=== PATIENT | female | born 1930 | race Caucasian/White ===

== ENCOUNTER → 2016-03-20 | Outpatient (CLI) | payer MEDICARE, OTHER ==
--- NOTE | 2016-03-20 08:55 | RAD ---
EXAM DESCRIPTION: XR SHOULDER 2 OR MORE VIEWS CLINICAL HISTORY: PAIN IN LEFT SHOULDER COMPARISON: None Available. TECHNIQUE: Two views. FINDINGS: Degenerative changes are observed in the acromioclavicular joint. The glenohumeral joint is unremarkable. No fracture dislocation is seen. IMPRESSION: Degenerative changes are observed in the acromioclavicular joint.The left shoulder is otherwise unremarkable. Electronically signed by: Celestine Zamora MD 03/20/2016 08:54
== END ==
LOC: RAD 07:40
PROVIDERS: ATTEND Orthopaedic Surgery
DX: M25.512 Pain in left shoulder (principal); M12.812 Other specific arthropathies, not elsewhere classified, left shoulder

== ENCOUNTER → 2016-05-14 | Outpatient (CLI) | payer MEDICARE, OTHER | END | disposition home or self-care (01) | LOC: RESP 09:20 | PROVIDERS: ATTEND Orthopaedic Surgery | DX: Z01.818 Encounter for other preprocedural examination (principal) ==

== ENCOUNTER → 2016-07-13 | Outpatient (CLI) | payer MEDICARE, OTHER ==
--- NOTE | 2016-07-13 16:38 | RAD ---
EXAM DESCRIPTION: Knee,Left Complete CLINICAL HISTORY: 85 years Female, KNEE PAIN IMPRESSION: 4 views of the left knee reveal severe degenerative change of the medial compartment with joint space loss and osteophyte formation. Severe degenerative changes also noted at the patellofemoral joint with joint space loss and osteophyte formation. Fairly preserved joint space of lateral compartment. No fracture. Small joint effusion is noted. Electronically signed by: Charly Jimenez MD 07/13/2016 4:37 PM CDT
--- NOTE | 2016-07-13 16:39 | RAD ---
EXAM DESCRIPTION: Knee,Right Complete CLINICAL HISTORY: 85 years Female, KNEE PAIN IMPRESSION: 4 views of right knee reveals tricompartment advanced joint space loss with osteophyte formation. Small joint effusion noted. No evidence of fracture or osseous lesion. Electronically signed by: Charly Jimenez MD 07/13/2016 4:38 PM CDT
--- NOTE | 2016-07-13 16:41 | RAD ---
EXAM DESCRIPTION: Pelvis CLINICAL HISTORY: 85 years Female, HIP PAIN IMPRESSION: Single view of the pelvis reveals degenerative change of the lower lumbar spine and mild joint space loss of bilateral hips, left greater than right. The pelvic ring is intact. Electronically signed by: Charly Jimenez MD 07/13/2016 4:39 PM CDT
== END | disposition home or self-care (01) ==
LOC: RAD 08:39
PROVIDERS: ATTEND Orthopaedic Surgery
DX: M25.561 Pain in right knee (principal); M25.562 Pain in left knee; M25.551 Pain in right hip; M25.552 Pain in left hip

== ENCOUNTER 2016-08-07 05:55 | Day surgery (SDC) | payer MEDICARE, OTHER ==
--- NOTE | 2016-08-06 10:47 | HP ---
CHIEF COMPLAINT: Left hand pain and numbness. HISTORY OF PRESENT ILLNESS: Ms. Abbott is an 85-year-old female with a history of numbness in the left hand. She has had numbness going on for a very long time. It is on a continual basis. Because of the extent of it and failure of conservative measures, she has requested operative intervention. After discussing the risks, benefits and alternatives to that, the patient has given informed consent for carpal tunnel release. PAST SURGICAL HISTORY: 1. Tonsillectomy. 2. Cholecystectomy. 3. Thyroidectomy. 4. Colectomy. 5. Hysterectomy. 6. Hemorrhoidectomy. 7. . MEDICATIONS: 1. Benefiber. 2. Plaquenil. 3. Prilosec. 4. MiraLAX. 5. Vicodin. 6. Gabapentin. 7. Fluvastatin. 8. Levothyroxine. ALLERGIES: NO KNOWN DRUG ALLERGIES. CODE STATUS: Full code. IMMUNIZATIONS: Up to date. SOCIAL HISTORY: The patient does not smoke or use any illicit drugs. She does drink on occasion. FAMILY HISTORY: None pertinent to today's complaint. REVIEW OF SYSTEMS: Negative except as indicated in the History of Present Illness. PHYSICAL EXAMINATION: VITAL SIGNS: Blood pressure 152/71. Pulse 70. Height 5'2". Weight 140. MENTAL STATUS: The patient is awake, alert, and is able to give a good history and participate in the physical. The patient is oriented to person, place and time. SKIN: Normal tone and turgor. MUSCULOSKELETAL: She has positive Tinel's and positive Phalen's. She has some thenar atrophy. The entire extremity is warm and well perfused. She maintains full range of motion and full [employer] strength. She does have swelling at the IP joints of the digits. She does have a history of rheumatoid arthritis. ASSESSMENT: 1. Carpal tunnel syndrome. 2. Rheumatoid arthritis. PLAN: The plan at this point is for carpal tunnel release. We have discussed the risks, benefits, and alternatives to that and the patient has given informed consent. #[id number] [facility]
[2016-08-07] MEDS ORDERED: ceFAZolin SODIUM 1 GM VIAL ONE ×2 (06:10→09:46)
[2016-08-07] MEDS ORDERED: SODIUM CHL 0.9% 50ML MIN-BAG+ 50 ML IVPB ONE (06:10)
[2016-08-07] MEDS ORDERED: LACTATED RINGERS 1,000 ML ONE (06:10)
[2016-08-07] MEDS ORDERED: LIDOCAINE 1% 50 ML VIAL INJ ONE (09:46)
[2016-08-07] MEDS ORDERED: BUPIVACAINE 0.25% INJ 30 ML VIAL INJ ONE (09:46)
[2016-08-07] MEDS ORDERED: VANCOMYCIN HCL INJ 1,000 MG VIAL IVPB ONE (09:46)
[2016-08-07] MEDS ORDERED: HYDROCORTISONE SOD SUCC INJ 100 MG/2 ML VIAL IV ONE (12:00)
[2016-08-07] MEDS ORDERED: PROPOFOL 200 MG/20 ML VIAL IV ONE (12:00)
[2016-08-07 13:04] VITALS: BP 158/76; TEMP 97.3; O2SAT 100
--- NOTE | 2016-08-08 08:31 | OP ---
DATE OF PROCEDURE: 08/07/16 PREOPERATIVE DIAGNOSIS: 1. Carpal tunnel syndrome. POSTOPERATIVE DIAGNOSIS: 1. Carpal tunnel syndrome. PROCEDURE: 1. Carpal tunnel release. SURGEON: Jefferson Gilmore MD. IT PROFESSIONAL: Kevin Trejo CST, SA-C. ANESTHESIA: Local with sedation. COMPLICATIONS: None. FINDINGS: Advanced thenar atrophy and thickening of the transverse carpal ligament. INDICATION: The patient has a long history of pain in the wrist with associated numbness. It has gotten to the point now where it is present on a continual basis. She has attempted multiple conservative measures, however, has failed to gain relief. Because of the failure of conservative measures, the patient has requested operative intervention. After discussing the risks, benefits and alternatives to that, the patient has given informed consent for carpal tunnel release. PROCEDURE: The patient was brought to the Operating Room and placed in the supine position. Sedation was administered and local anesthetic was injected into the operative area under sterile conditions. After the injection of anesthetic, the arm was sterilely prepped and draped. A longitudinal incision was made directly overlying the transverse carpal ligament and blunt dissection was carried down to the ligament. The transverse carpal ligament was sharply transected along its length and a [place] elevator was used to ensure complete release of the ligament. Once release had been confirmed, the wound was thoroughly irrigated and the wound was closed with Nylon suture. A sterile dressing was placed and the patient was taken to the Day Surgery Unit. POSTOPERATIVE INSTRUCTIONS: The patient has been encouraged to do range of motion of the digits and will followup with us in two days. [id number] MTDD
== END 2016-08-07 12:10 | disposition home or self-care (01) ==
LOC: AMB 05:55
PROVIDERS: ATTEND Orthopaedic Surgery
DX: G56.02 Carpal tunnel syndrome, left upper limb (principal); M06.9 Rheumatoid arthritis, unspecified; I10 Essential (primary) hypertension; Z87.891 Personal history of nicotine dependence; E89.0 Postprocedural hypothyroidism; K21.9 Gastro-esophageal reflux disease without esophagitis; G89.29 Other chronic pain; Z79.899 Other long term (current) drug therapy
CPT/HCPCS: 01810; 64721; 87070; J0690; J1720; J3370; J3490; J7050; J7120

== ENCOUNTER → 2018-04-03 | Outpatient (CLI) | payer MEDICARE, OTHER ==
--- NOTE | 2018-04-03 13:18 | RAD ---
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 There is progressive cortical remodeling and truncation of the radial head. 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 Large elbow effusion noted. No acute fracture identified. Electronically signed by: Rojas Arvizu MD 04/03/2018 1:16 PM [facility]
== END ==
LOC: RAD 09:23
PROVIDERS: ATTEND Orthopaedic Surgery
DX: S53.012A Anterior subluxation of left radial head, initial encounter (principal); M19.022 Primary osteoarthritis, left elbow; M25.422 Effusion, left elbow

== ENCOUNTER 2018-04-29 05:30 | Day surgery (SDC) | payer MEDICARE, OTHER ==
--- NOTE | 2018-04-28 10:24 | HP ---
CHIEF COMPLAINT: Left hand numbness and pain. HISTORY OF PRESENT ILLNESS: Vannesa is an 87-year-old female with a history of elbow pain and numbness. She has had no neurologic symptoms associated with this. She said it has gotten worse and is getting to the point where it is at all times on the fifth digit and is increasingly worsening on the fourth digit. There was no trauma. She has requested operative intervention. After discussing the risks, benefits and alternatives to operative intervention, she has given informed consent. PAST SURGICAL HISTORY: 1. Hysterectomy. 2. Tonsillectomy. 3. Hemorrhoidectomy. 4. . MEDICATIONS: 1. Gabapentin. 2. Levothyroxine. 3. Prednisone. 4. Hydroxychloroquine. 5. Valsartan. ALLERGIES: NO KNOWN DRUG ALLERGIES. CODE STATUS: Full code. IMMUNIZATIONS: Up to date. FAMILY HISTORY: None pertinent to today's complaint. SOCIAL HISTORY: The patient does not drink, smoke or use any illicit drugs. REVIEW OF SYSTEMS: Negative except as indicated in the History of Present Illness. PHYSICAL EXAMINATION: VITAL SIGNS: Blood pressure 148/70. Pulse 74. Height 5'7". Weight 135 pounds. MENTAL STATUS: The patient is awake, alert, and is able to give a good history and participate in the physical. The patient is oriented to person, place and time. SKIN: Normal tone and turgor. MUSCULOSKELETAL: She has obvious hypothenar atrophy. She has intact sensation throughout the distribution of the median nerve. She has positive Tinel's at the elbow and she has subjective numbness at rest in the fifth digit. She has numbness in the fourth digit on the ulnar border. She is weak in abduction. Flexion strength of the hand is equivalent to the contralateral side. She has no overall malalignment or deformity and maintains full range of motion. ASSESSMENT: 1. Ulnar nerve entrapment. PLAN: The plan at this point is ulnar nerve transposition. We have discussed the risks, benefits, and alternatives to that and the patient has given informed consent. [facility][id number] [facility]
[2018-04-29] MEDS ORDERED: ceFAZolin SODIUM 1 GM VIAL ONE (05:52)
[2018-04-29] MEDS ORDERED: LACTATED RINGERS 1,000 ML ONE (05:52)
[2018-04-29] MEDS ORDERED: SODIUM CHL 0.9% 100ML MINI-BAG 100 ML IVPB ONE (05:52)
[2018-04-29] MEDS ORDERED: BUPIVACAINE 0.5% 30 ML VIAL INJ ONE (06:41)
[2018-04-29] MEDS ORDERED: fentaNYL CITRATE INJ 50 MCG/ML AMP ONE (06:45)
[2018-04-29] MEDS ORDERED: KETAMINE HCL 100 MG/ML VIAL ONE (07:22)
[2018-04-29] MEDS ORDERED: ACETAMINOPHEN IV 1000MG 100 ML ONE (07:39)
[2018-04-29] MEDS: ceFAZolin SODIUM 1 GM VIAL ONE ×2 (07:52→08:56)
[2018-04-29] MEDS: VANCOMYCIN HCL INJ 1,000 MG VIAL IVPB ONE ×2 (07:53→08:56)
[2018-04-29] MEDS: BUPIVACAINE LIPOSOME 13.3 MG/ML VIAL INJ ONE ×2 (08:31→08:52)
[2018-04-29] MEDS ORDERED: LIDOCAINE 1% 10 ML VIAL INJ ONE (10:00)
[2018-04-29] MEDS ORDERED: DEXAMETHASONE INJ 10 MG/ML VIAL IV ONE (10:00)
[2018-04-29] MEDS ORDERED: diphenhydrAMINE HCL 50 MG/ML VIAL IV ONE (10:00)
[2018-04-29] MEDS ORDERED: PROPOFOL 200 MG/20 ML VIAL IV ONE (10:00)
[2018-04-29] MEDS ORDERED: EPINEPHrine HCL AMP 1 MG/ML AMP IM ONE (10:00)
[2018-04-29 10:58] VITALS: BP 127/57; TEMP 97.9; O2SAT 96
--- NOTE | 2018-04-30 11:13 | OP ---
DATE OF PROCEDURE: 04/29/18 PREOPERATIVE DIAGNOSIS: 1. Ulnar nerve entrapment. POSTOPERATIVE DIAGNOSIS: 1. Ulnar nerve entrapment. PROCEDURE: 1. Ulnar nerve transposition. SURGEON: Jefferson Gilmore MD. PHOTOCOMPOSITION KEYBOARD OPERATOR: Kevin Trejo CST, SA-C. ANESTHESIA: General anesthesia. COMPLICATIONS: None. FINDINGS: 1. Narrowing of the ulnar nerve across the cubital tunnel. 2. Hypothenar atrophy. INDICATION: Ms. Abbott has a long history of pain and numbness in the elbow and hand. Because of her ongoing pain and numbness, she has requested operative intervention. After discussing the risks, benefits and alternatives to that, she has given informed consent for that. PROCEDURE: The patient was brought to the Operating Room and placed in the supine position. General anesthesia was induced and the patient's arm was sterilely prepped and draped. An incision was then made midway between the medial epicondyle and the olecranon. Blunt dissection was carried down and the ulnar nerve was identified proximally. A vessel loop was carefully passed around the nerve and it was subsequently used to atraumatically manipulate the nerve. The nerve was freed from proximal to distal and once it became fully mobilized, the soft tissues along the medial aspect of the elbow were elevated. The nerve was transposed without tension under the tissues and the subcutaneous tissues were sewn to the periosteum and medial epicondyle. Following, it was thoroughly probed to ensure that it was free of any compression. The wound was very thoroughly irrigated and closed with combination of running and interrupted subcuticular stitches. Sterile dressings were placed followed by a splint. The patient was awoken from anesthesia and taken to Recovery. POSTOPERATIVE PLAN: The patient has been encouraged to do range of motion of the digits. She will followup with us in approximately w days. [facility][id number] [facility]
== END 2018-04-29 10:45 | disposition home or self-care (01) ==
LOC: AMB 05:30
PROVIDERS: ATTEND Orthopaedic Surgery
DX: G56.22 Lesion of ulnar nerve, left upper limb (principal); K21.9 Gastro-esophageal reflux disease without esophagitis; Z90.710 Acquired absence of both cervix and uterus; Z79.899 Other long term (current) drug therapy
CPT/HCPCS: 01710; 64718; 80307; J0690; J1100; J1200; J3010; J3370; J3490; J7050; J7120